=== PATIENT | male | born 2000 | race Caucasian/White ===

== ENCOUNTER 2022-05-19 12:55 | Emergency (ER) | payer MEDICAID ==
[~2022-05-19] VITALS: Ht 182.9 cm; Wt 61.4 kg
[2022-05-19 13:30] VITALS: BP 108/58
== END 2022-05-19 18:44 | disposition left against medical advice (07) ==
LOC: ER 12:56
DX: J00 Acute nasopharyngitis [common cold] (principal); R05.9 Cough, unspecified; R09.89 Other specified symptoms and signs involving the circulatory and respiratory systems; Z53.21 Procedure and treatment not carried out due to patient leaving prior to being seen by health care provider